=== PATIENT | female | born 2000 | race African-American/Black ===

== ENCOUNTER 2022-05-20 16:20 | Day surgery (SDC) | payer BC, OTHER ==
[2022-05-20 16:53] VITALS: BMI 24.3
[2022-05-20] MEDS ORDERED: hydrALAZINE 20 MG/ML VIAL SLOW IVP PRN (17:03)
[2022-05-20] MEDS: Lactated Ringer's 1,000 ML IV SCH ×3 (17:20→20:54)
[2022-05-20 19:31] LABS: Bilirubin Neg (Negative); Blood, Urine Negative (Negative); Clarity Clear (Clear); Glucose, Urine (Dipstick) Normal (Negative); Ketone, Urine 15 mg/dL (Negative); Leukocyte 25 (Negative); Nitrite Negative (Negative); Protein, Urine (Dipstick) Negative (Neg-Trace); Specific Gravity, Urine 1.015 (1.005-1.030); Urobilinogen Normal mg/dL (Less than 2); pH, Urine 6.5 (5.0-9.0)
[2022-05-20 19:43] LABS: Bacteria/HPF 1+ HPF (None Seen); Mucous/LPF Rare LPF (<2+); RBC/HPF 0-3 HPF (0-3); WBC/HPF 0-3 HPF (0-3)
[2022-05-20] MEDS ORDERED: CEFAZOLIN 2 GM in Sodium Chloride 0.9% 100 ML IVPB SCH (20:30)
[2022-05-20] MEDS ORDERED: Cephalexin 500 MG CAP PO SCH (23:59)
== END 2022-05-20 22:45 | disposition home or self-care (01) ==
LOC: CSHLD/OP 16:20 → EDSTATUS 16:21 → CSHLD/OP 22:45
PROVIDERS: ATTEND Student in an Organized Health Care Education/Training Program
DX: O23.43 Unspecified infection of urinary tract in pregnancy, third trimester (principal); N39.0 Urinary tract infection, site not specified; O99.513 Diseases of the respiratory system complicating pregnancy, third trimester; R06.02 Shortness of breath; Z3A.30 30 weeks gestation of pregnancy
CPT/HCPCS: 71045; 81003; 81015; 96361; 96365; 99283; J3490; U0003; U0005

== ENCOUNTER 2022-07-19 05:48 | Inpatient (IN) | payer BC, OTHER ==
[2022-07-19 06:14] VITALS: BMI 27.6
[2022-07-19] MEDS ORDERED: Ondansetron PF 4 MG/2 ML Vial IVP PRN ×3 (07:23→20:35)
[2022-07-19] MEDS ORDERED: Carboprost 250 MCG/ML AMP IM PRN (07:23)
[2022-07-19] MEDS ORDERED: Butorphanol Tartrate 1 MG/ML VIAL SLOW IVP PRN (07:23)
[2022-07-19] MEDS ORDERED: HYDROcodone/Acetaminophen 5/325 mg Tablet PO PRN ×3 (07:23→20:35)
[2022-07-19] MEDS ORDERED: Acetaminophen 500 MG TAB PO PRN (07:23)
[2022-07-19] MEDS ORDERED: hydrALAZINE 20 MG/ML VIAL SLOW IVP PRN ×2 (07:23→20:35)
[2022-07-19] MEDS ORDERED: Lidocaine 1% (PF) 30 ML VIAL SC PRN (07:23)
[2022-07-19] MEDS ORDERED: Promethazine HCl 25 MG/ML VIAL IM PRN ×3 (07:23→20:35)
[2022-07-19] MEDS ORDERED: Misoprostol 200 MCG TAB PR PRN (07:23)
[2022-07-19] MEDS ORDERED: Diphenoxylate HCl/Atropine Tablet PO PRN (07:23)
[2022-07-19] MEDS ORDERED: Ibuprofen 800 MG TAB PO PRN (07:23)
[2022-07-19] MEDS ORDERED: Lactated Ringer's 1,000 ML IV SCH (07:30)
[2022-07-19] MEDS ORDERED: NS w/ Oxytocin 30 units 500 ML IV SCH ×2 (07:30)
[2022-07-19 07:33] LABS: Hemoglobin 11.2 g/dL (12.0-15.5); Mean Corpuscular HGB CONC 34.5 g/dL (32.0-36.0); Mean Corpuscular Hemoglobin 30.6 pg (27.0-33.0); Mean Corpuscular Volume 88.8 fl (81.6-98.3); Mean Platelet Volume 10.6 fl (7.4-10.4); Platelet Count 213 10x3/uL (150-450); RBC Distribution Width 13.8 % (11.5-14.5); Red Blood Cell (RBC) Count 3.66 10x6/uL (3.90-5.03); White Blood Cell (WBC) Count 12.1 10x3/uL (3.5-10.5)
[2022-07-19 07:47] LABS: ALT (SGPT) 14 U/L (8-55); AST (SGOT) 22 U/L (5-34); Albumin 3.4 g/dL (3.5-5.0); Alkaline Phosphatase 131 U/L (40-110); Anion Gap 15 mmol/L (10-20); BUN (Urea Nitrogen) 15 mg/dL (7.0-18.7); Bilirubin, Total 0.4 mg/dL (0.2-1.2); Calc. Creatinine Clearance 137 mL/min (70-130); Calcium 9.1 mg/dL (7.8-10.44); Carbon Dioxide 17 mmol/L (22-29); Chloride 110 mmol/L (98-107); Estimated GFR 126; Globulin 2.8 g/dL (2.4-3.5); Glucose 104 mg/dL (70-105); Potassium 3.9 mmol/L (3.5-5.1); Protein, Total 6.2 g/dL (6.0-8.3); Sodium 138 mmol/L (136-145)
[2022-07-19 08:06] LABS: HBSAg Index 0.15 S/CO (0-0.99); Hep B Surf Ag Non-Reactive S/CO (NonReactive)
[2022-07-19 08:07] LABS: Syphilis Antibody Nonreactive (Nonreactive); Syphilis Antibody Index 0.03 S/CO (<1.00 Non-Reactive)
[2022-07-19 08:19] LABS: SARS-CoV-2 NAA Rapid Test Not Detected (NotDetected)
[2022-07-19] MEDS ORDERED: ePHEDrine Sulfate 50 MG/10 ML VIAL SLOW IVP PRN (10:16)
[2022-07-19] MEDS ORDERED: Naloxone HCl 0.4 mg/ml Vial IVP PRN ×2 (10:16)
[2022-07-19] MEDS ORDERED: Lactated Ringer's 500 ML IV PRN (10:16)
[2022-07-19] MEDS ORDERED: diphenhydrAMINE 50 MG/ML VIAL IVP PRN (10:16)
[2022-07-19] MEDS ORDERED: Acetaminophen 325 MG TAB PO PRN (10:16)
[2022-07-19] MEDS ORDERED: Moisturizing Cream (Eucerin) 113 GM JAR TOP PRN (10:16)
[2022-07-19] MEDS ORDERED: Fentanyl 2 mcg/Bup 0.1% Cadd 100 ML ONE (10:19)
[2022-07-19] MEDS ORDERED: Communication Order-Pharmacy FS SCH (10:30)
[2022-07-19] MEDS ORDERED: Fentanyl 2 mcg/Bupivacaine 0.1% Cassette 100 ML EPIDURAL SCH (10:30)
[2022-07-19] MEDS ORDERED: Bupivacaine HCl 0.5%/Epinephrine 1:200,000/PF 30 ml Vial ONE (14:51)
[2022-07-19] MEDS ORDERED: Milk Of Magnesia 30 ML UDCUP PO PRN (20:35)
[2022-07-19] MEDS ORDERED: Benzocaine-Menthol 82.5 ML CAN TOP PRN (20:35)
[2022-07-19] MEDS ORDERED: Lanolin Ointment 7 GM TUBE TOP PRN (20:35)
[2022-07-19] MEDS ORDERED: Boostrix 0.5 ML (Tdap) VIAL (>/=7 yrs of age) IM ONE (20:35)
[2022-07-19] MEDS ORDERED: diphenhydrAMINE 25 MG CAP PO PRN (20:35)
[2022-07-19] MEDS ORDERED: Bisacodyl 10 MG SUPP PR PRN (20:35)
[2022-07-19] MEDS ORDERED: Preparation H Ointment 28 GM TUBE PR PRN (20:35)
[2022-07-19] MEDS: Ibuprofen 800 MG TAB PO SCH (20:54)
[2022-07-19] MEDS: Docusate 100 MG CAP PO SCH (20:55)
[2022-07-20] MEDS: Ibuprofen 800 MG TAB PO SCH ×3 (05:04→21:47)
[2022-07-20] MEDS: Prenatal Vitamin 1 TAB PO SCH (17:50)
[2022-07-20] MEDS: Docusate 100 MG CAP PO SCH ×2 (17:50→21:47)
[2022-07-20] MEDS: Ferrous Sulfate 325 MG TAB PO SCH (17:50)
[2022-07-21] MEDS: Ibuprofen 800 MG TAB PO SCH (05:31)
[2022-07-21] MEDS: Docusate 100 MG CAP PO SCH (10:09)
[2022-07-21] MEDS: Prenatal Vitamin 1 TAB PO SCH (10:09)
[2022-07-21] MEDS: Ferrous Sulfate 325 MG TAB PO SCH (10:09)
[2022-07-21 11:16] VITALS: BP 124/62; TEMP 98.3
== END 2022-07-21 11:16 | disposition home or self-care (01) | DRG 807 ==
LOC: CSHLD 05:48 → CSHPP 20:10
PROVIDERS: ADMIT Student in an Organized Health Care Education/Training Program; ATTEND Student in an Organized Health Care Education/Training Program
PROC: 0HQ9XZZ Repair Perineum Skin, External Approach (ICD-10-PCS; principal; 2022-07-19)
PROC: 10E0XZZ Delivery of Products of Conception, External Approach (ICD-10-PCS; 2022-07-19)
PROC: 10907ZC Drainage of Amniotic Fluid, Therapeutic from Products of Conception, Via Natural or Artificial Opening (ICD-10-PCS; 2022-07-19)
DX: O13.4 Gestational [pregnancy-induced] hypertension without significant proteinuria, complicating childbirth (principal); Z37.0 Single live birth; O70.0 First degree perineal laceration during delivery; Z20.822 Contact with and (suspected) exposure to COVID-19; Z3A.39 39 weeks gestation of pregnancy
CPT/HCPCS: 36415; 51702; 80053; 85027; 86780; 86850; 86900; 86901; 87340; U0002

== ENCOUNTER 2024-07-31 23:29 | Emergency (ER) | payer BC, OTHER ==
[2024-08-01] MEDS ORDERED: Acetaminophen 500 MG TAB ONE (00:11)
== END 2024-08-01 01:26 | disposition home or self-care (01) ==
LOC: CSHERS 23:29
DX: O99.891 Other specified diseases and conditions complicating pregnancy (principal); R51.9 Headache, unspecified; Z3A.17 17 weeks gestation of pregnancy; Z79.82 Long term (current) use of aspirin
CPT/HCPCS: 87081; 87428; 87430; 99284

== ENCOUNTER 2025-01-28 21:33 | Emergency (ER) | payer OTHER ==
[2025-01-28 22:01] LABS: Glucose, Urine (Dipstick) Normal (Negative); Leukocyte 500 (Negative); Protein, Urine (Dipstick) Negative (Neg-Trace); Specific Gravity, Urine 1.015 (1.005-1.030)
[2025-01-28 22:23] LABS: CAUTI Indications for Culture Dysuria,urgency,freq; RBC/HPF 0-3 HPF (0-3)
[2025-01-28 22:24] LABS: Bacteria/HPF 2+ HPF (None Seen); Mucous/LPF 2+ LPF (<2+)
[2025-01-28 22:28] LABS: Urine Culture Reflex No No
[2025-01-28] MEDS ORDERED: Cefdinir 300 MG CAP ONE (23:56)
== END 2025-01-28 23:51 | disposition home or self-care (01) ==
LOC: CSHERS 21:33
DX: N39.0 Urinary tract infection, site not specified (principal)
CPT/HCPCS: 81001; 87400; 87426; 99283